=== PATIENT | female | born 1950 | race Caucasian/White ===

== ENCOUNTER 2018-04-26 11:39 | Day surgery (SDC) | payer OTHER, MEDICARE ==
[2018-04-26] MEDS ORDERED: FLUMAZENIL 0.5 MG/5 ML MDV IVP PRN (11:57)
[2018-04-26] MEDS ORDERED: MEPERIDINE 25 MG/ML SYR IVP PRN (11:57)
[2018-04-26] MEDS ORDERED: HEPARIN 10,000 UNIT/10 ML MDV (1,000 UNIT/ML) IVP PRN (11:57)
[2018-04-26] MEDS ORDERED: DEXAMETHASONE 10 MG/ML VIAL IVP ONE (11:57)
[2018-04-26] MEDS ORDERED: NS 1,000 ML IV ONE (11:57)
[2018-04-26] MEDS ORDERED: MIDAZOLAM 2 MG/2 ML VIAL IVP PRN (11:57)
[2018-04-26] MEDS ORDERED: PROTAMINE SULFATE 50 MG/5 ML VIAL IVP PRN (11:57)
[2018-04-26] MEDS ORDERED: GLUCAGON HCL 1 MG VIAL IVP PRN (11:57)
[2018-04-26] MEDS ORDERED: fentaNYL 100 MCG/2 ML INJ IVP PRN (11:57)
[2018-04-26] MEDS ORDERED: ALTEPLASE 2 MG VIAL IVP PRN (11:57)
[2018-04-26] MEDS ORDERED: ceFAZolin 2 GM/DEXTROSE 100 ML IV ONE (11:57)
[2018-04-26] MEDS ORDERED: NALOXONE HCL 0.4 MG/ML INJ IVP PRN (11:57)
[2018-04-26 12:39] LABS: PLATELET COUNT 295 10^3/uL (150-400)
[2018-04-26 12:49] LABS: INR 1.02 (0.83-1.16); PROTIME(PATIENT) 13.6 SEC (12.0-15.0)
[2018-04-26] MEDS ORDERED: BUPIVACAINE 0.5% 30 ML SDV ONE (13:45)
[2018-04-26] MEDS ORDERED: ONDANSETRON 4 MG/2 ML VIAL IVP PRN (14:14)
[2018-04-26] MEDS ORDERED: ONDANSETRON DISINTEGRATING 4 MG TAB PO PRN (14:14)
--- NOTE | 2018-04-26 14:15 | PDRADPRE ---
Radiology History & Physical Indication for procedure: back pain (Painful L1 vertebral compression fracture) Home medications: Amlodipine Besylate 5 mg PO DAILY 04/24/18 [Last Taken 04/26/18] Magnesium 250 mg PO DAILY 04/24/18 [Last Taken 04/26/18] Oxycodone HCl 5 mg PO QID PRN 04/24/18 [Last Taken 04/26/18] Pantoprazole Sodium 40 mg PO DAILY 04/24/18 [Last Taken 04/26/18] Robaxin 500 mg (*) 750 mg PO QID PRN 04/24/18 [Last Taken Unknown] Tylenol Extra Strength 1,000 mg PO BID PRN 04/24/18 [Last Taken Unknown] Valium 5 MG (*) 5 mg PO BID PRN 04/24/18 [Last Taken Unknown] Allergies/Adverse Reactions: No Known Allergies Allergy (Unverified 04/24/18 15:28) Mental status: A&Ox3 Heart exam: regular rate and rhythm Lungs exam: clear to auscultation
--- NOTE | 2018-04-26 14:16 | PDRADPN ---
Radiology Procedure Note Date of Procedure: 04/26/18 Radiologist: Jesus Manuel Lock Anesthesia: IV Sedation Pre-op Diagnosis: Painful L1 vertebral compression fracture Post-op Diagnosis: Painful L1 vertebral compression fracture Indication: Painful L1 vertebral compression fracture Procedure: L1 vertebroplasty Finding(s): Successful unipedicular vertebroplasty L1. No extravasation Inf/Abcess present in the surg proc area at time of surgery?: No
--- NOTE | 2018-04-26 14:16 | PDPROPOC ---
Sedation Plan of Care Sedation Plan of Care: vital signs stable, mental status noted, patient educated of risks, benefits, alternatives, patient can tolerate sedation ASA Classification: ASA 2 Planned drugs: fentanyl, midazolam Mallampati Score: Class 2 Mallampati Reference Image: Patient passed 3-3-2 rule?: Yes
[2018-04-26] MEDS ORDERED: oxyCODONE IR 5 MG TAB PO PRN (14:34)
[2018-04-26 17:23] VITALS: BP 141/80
== END 2018-04-26 16:50 | disposition home or self-care (01) ==
LOC: FIMAGING 11:39
PROVIDERS: ATTEND Physician Assistant
PROC: 0QU03JZ Supplement Lumbar Vertebra with Synthetic Substitute, Percutaneous Approach (ICD-10-PCS; 2018-04-26)
PROC: 0QS03ZZ Reposition Lumbar Vertebra, Percutaneous Approach (ICD-10-PCS; principal; 2018-04-26 14:25)
DX: M48.56XA Collapsed vertebra, not elsewhere classified, lumbar region, initial encounter for fracture (principal); M54.5 Low back pain
CPT/HCPCS: J0690; J1100; J2250; J2310; J3010